=== PATIENT | male | born 1955 | race African-American/Black ===

== ENCOUNTER 2022-04-23 19:23 | Emergency (ER) | payer MEDICARE, MEDICAID ==
[2022-04-23 20:20] LABS: SARS-CoV-2 NAA Rapid Test Not Detected (NotDetected)
== END 2022-04-23 21:01 | disposition home or self-care (01) ==
LOC: CSHERS 19:23
DX: J18.9 Pneumonia, unspecified organism (principal); Z20.822 Contact with and (suspected) exposure to COVID-19; I10 Essential (primary) hypertension
CPT/HCPCS: 0240U; 71045; 99284